=== PATIENT | male | born 1955 | race Caucasian/White ===

== ENCOUNTER 2017-06-06 11:15 | Outpatient (CLI) | payer BC ==
[2017-06-06 19:40] LABS: THYROID STIMULATING HORMONE 2.54 uIU/mL (0.34-5.60)
[2017-06-06 19:51] LABS: FOLATE 19.46 ng/mL (5.90 - >24.8)
== END 2017-06-06 11:16 | disposition home or self-care (01) ==
LOC: LAB.WCP 11:15
PROVIDERS: ATTEND Family Medicine
DX: R41.3 Other amnesia (principal); Z12.5 Encounter for screening for malignant neoplasm of prostate
CPT/HCPCS: 36415; 82607; 82746; 84153; 84443

== ENCOUNTER 2017-07-21 09:37 | Outpatient (CLI) | payer BC | END 2017-07-21 09:38 | disposition home or self-care (01) | LOC: SC 09:37 | PROVIDERS: ATTEND Internal Medicine Pulmonary Disease | DX: G47.30 Sleep apnea, unspecified (principal); R51 Headache; G47.10 Hypersomnia, unspecified; R06.83 Snoring | CPT/HCPCS: 99203; 99212 ==

== ENCOUNTER 2017-09-17 08:50 | Outpatient (CLI) | payer BC | END 2017-09-17 08:51 | disposition home or self-care (01) | LOC: SC 08:50 | PROVIDERS: ATTEND Nurse Practitioner Family | DX: G47.33 Obstructive sleep apnea (adult) (pediatric) (principal) | CPT/HCPCS: 99212; 99214 ==

== ENCOUNTER 2017-10-13 08:00 | Outpatient (CLI) | payer BC | END 2017-10-13 08:01 | disposition home or self-care (01) | LOC: LAB.WCP 08:00 | PROVIDERS: ATTEND Specialist | DX: E53.8 Deficiency of other specified B group vitamins (principal); R41.3 Other amnesia | CPT/HCPCS: 36415; 83921 ==